=== PATIENT | female | born 1980 | race Hispanic/Latino ===

== ENCOUNTER 2022-07-23 07:43 | Emergency (ER) | payer OTHER ==
--- OUTSIDE RECORDS SUMMARY | 2022-07-23 07:47 | XMS REPORT | Continuity of Care Document ---
:1980 Author Organization [facility] t Address [address] [place] [address] Dr. Ortiz [address] [place] [address] Care Team Providers Name Role Phone Saad Cheek Primary Care Physician [phone] Problems This patient has no known problems. Allergies, Adverse Reactions, Alerts This patient has no known allergies or adverse reactions. Medications Ordered Filled Start Stop Current Ordering Indication Dosage Frequency Signature Comments Components Source Medication Medication Date Date Medication? Clinician (SIG) Name Name TAKE 1 No 10 TABLET (10 8-22 MG TOTAL) 00:00: BY MOUTH 00 DAILY. atorvastati 2021-0 No 1mg n 20 mg 7-21 tablet 00:00: 00 Dose 2021-0 No Unknown 7-21 00:00: 00 Jardiance 2-0 No 1mg 10 mg 7-21 tablet 00:00: 00 Jardiance 2021-0 No 1mg 10 mg 7-21 tablet 00:00: 00 metformin 2-0 No 1mg 1,000 mg 7-21 tablet 00:00: 00 gabapentin 2-0 No 1mg 600 mg 7-21 tablet 00:00: 00 Vital Signs Vital Name Observation Time Observation Value Comments Source BP Systolic 2022-04-21 16:34:00 118 mm[Hg] BP Diastolic 2022-04-21 16:34:00 84 mm[Hg] Weight Measured 2022-04-21 16:34:00 251.60 pounds Height Measured 2022-04-21 16:34:00 64.00 inches Body Temperature 2022-04-21 16:34:00 98.10 degrees Heart Rate 2022-04-21 16:34:00 87.00 /min Respiratory Rate 2022-04-21 16:34:00 18.00 /min Procedures This patient has no known procedures. Plan of Care Planned Activity Planned Date Details Comments Source Goal Plan of Care Note [code = 88430-7] Goal Plan of Care Note [code = 10061-3] Encounters Start End Encounter Admission Attending Care Care Encounter Source Date/Time Date/Time Type Type Clinicians Facility Department ID 2022-04-21 2022-04-21 Outpatient [id number] 00:00:00 00:00:00 Visit [id number] Results Test Description Test Time Test Comments Results Result Comments Source HEMOGLOBIN A1c 2022-04-23 04:14:14 Test Item Value Reference Range Interpretation Comme nts HEMOGLOBIN A1c (test code = 6.5 % 4.2-5.6 H [employer] 91371) GUIDELINES FOR HGB A1C: PREDIABETES/INC REASED RISK . . . . . . . 5.7-6.4% DIAGNO SIS OF DIABETES . . . . . . . . . >=6.5% WITH CONFIRMATION OR APPROPRIATE SYM PTOMS NOTE: ASSAY MAY BE AFFECTED BY HEM OGLOBINOPATHIES (SICKLE CELL ANEMIA, S- C DISEASE, OTHERS) OR ARTIFICIALLY LO WERED BY DECREASED RED CELL SURVIVAL ( HEMOLYTIC ANEMIAS, BLOOD LOSS, ETC.). CO NSIDER ALTERNATE TESTING OR LABORATORY C ONSULTATION. CBC W/AUTO DIFF WITH [id number] 03:34:16 Test Item Value Reference Range Interpretation Comments WBC (test code = 11.3 K/UL 3.5-11.0 H 1001) RBC (test code = 4.93 M/UL 3.80-5.40 1002) HEMOGLOBIN (test code 14.1 G/DL 11.5-15.5 = 1003) HEMATOCRIT (test code 42.5 % 34.0-45.0 = 1004) MCV (test code = 86.2 fL 80.0-99.0 1005) MCH (test code = 28.6 PG 25.0-33.0 1006) MCHC (test code = 33.2 G/DL 31.0-36.0 1007) RDW (test code = 12.1 % 11.5-15.0 1038) NEUTROPHILS (test 67.3 % code = 1008) LYMPHOCYTES (test 24.8 % code = 1010) MONOCYTES (test code 5.1 % = 1011) EOSINOPHILS (test 2.0 % code = 1012) BASOPHILS (test code 0.4 % = 1013) IMMATURE GRANULOCYTES 0.4 % (test code = 1036) NUCLEATED RBCS (test 0.0 /100 WBC'S See_Comment [Aut omated code = 1065) message] The sy stem which generated this result transmitted reference range : 0.0. The refere nce range was not u sed to interpret th is result as normal/abnormal . PLATELET COUNT (test 357 K/UL 130-400 code = 1015) ABSOLUTE NEUTROPHILS 7.62 K/UL 1.50-7.50 H (test code = 1066) ABSOLUTE LYMPHOCYTES 2.81 K/UL 1.00-4.00 (test code = 1067) ABSOLUTE MONOCYTES 0.58 K/UL 0.20-1.00 (test code = 1068) ABSOLUTE EOSINOPHILS 0.23 K/UL 0.00-0.50 (test code = 1040) ABSOLUTE BASOPHILS 0.04 K/UL 0.00-0.20 (test code = 1069) ABS IMMATURE 0.05 K/UL 0.00-0.10 GRANULOCYTES (test code = 1020) ABS NUCLEATED RBCS 0.00 K/UL 0.00-0.11 (test code = 75159) LIPID [id number] 02:37:12 Test Item Value Reference Range Interpretation Comments CHOLESTEROL (test 160 MG/DL <200 code = 2210) TRIGLYCERIDES (test 69 MG/DL <150 code = 2232) HDL CHOLESTEROL (test 37 MG/DL >39 L code = 2220) CALC LDL CHOL (test 107 MG/DL <100 H NOTE: C ALCULATED LDL code = 2237) IS BASED ON ISABELLA-KAISER METHOD WHICHINCLUDES ADJUSTABLE TRIGLYCERIDE:VL DL CHOLESTEROL RAT IO.THIS FACTOR VARIES B Y MEASURED TRIGLY CERIDE AND NON-HDLCHOL ESTEROL CONCENTRATIONS WITH INCREASED CALCU LATED LDL SEENIN HIGH ER TRIGLYCERIDE OR LOWER NON-HDL SPECIME NS. FOR MOREINFORMATION , SEE CLIENT ANNOUNCE MENT AT [email or web address] RISK RATIO LDL/HDL 2.89 RATIO <3.22 (test code = 2238) COMPREHENSIVE METABOLIC [id number] 02:37:12 Test Item Value Reference Range Interpretation Comments GLUCOSE (test code = 164 MG/DL 70-99 H 2216) BUN (test code = 9 MG/DL 6-20 2207) CREATININE (test 0.55 MG/DL 0.60-1.30 L code = 2214) eGFR (2020 CKD-EPI) 118 >60 (test code = 44576) ML/MIN/1.73 CALC BUN/CREAT (test 16 RATIO 6-28 code = 2235) SODIUM (test code = 141 MEQ/L 156-465 4892) POTASSIUM (test code 4.5 MEQ/L 3.5-5.4 = 2227) CHLORIDE (test code 103 MEQ/L 95-107 = 2214) CARBON DIOXIDE (test 27 MEQ/L 19-31 code = 220) CALCIUM (test code = 9.9 MG/DL 8.5-10.5 2208) PROTEIN, TOTAL (test 7.3 G/DL 6.1-8.3 code = 2228) ALBUMIN (test code = 4.5 G/DL 3.5-5.2 2200) CALC GLOBULIN (test 2.8 G/DL 1.9-3.7 code = 224) CALC A/G RATIO (test 1.6 RATIO 1.0-2.6 code = 223) BILIRUBIN, TOTAL 0.2 MG/DL See_Comment [Automated message] (test code = 2207) The syste m which generated this result transmitted ref erence range: <=1.2. T he reference range was not used to int erpret this result as normal/abnormal . ALKALINE PHOSPHATASE 63 U/L 40-113 (test code = 2204) AST (test code = 10 U/L 9-40 2217) ALT (test code = 14 U/L 5-40 UNLESS OTH ERWISE 2218) INDICATED, ALL TESTING PERFORM [facility] [place] [address] [place] [address] [facility] DIRECTOR: FIDELINA JONES M.D. CLIA NUMBER [id number] CAP ACCREDITATION N O. [id number] CBC W/AUTO DIFF WITH PLATELETS [ADDED]2022-04-23 00:00:00 Test Item Value Reference Range Interpretation Comments WBC (test code = 1001) 11.3 K/UL RBC (test code = 1002) 4.93 M/UL HEMOGLOBIN (test code = 1003) 14.1 G/DL HEMATOCRIT (test code = 1004) 42.5 % MCV (test code = 1005) 86.2 fL MCH (test code = 1006) 28.6 PG MCHC (test code = 1007) 33.2 G/DL RDW (test code = 1038) 12.1 % NEUTROPHILS (test code = 1008) 67.3 % LYMPHOCYTES (test code = 1010) 24.8 % MONOCYTES (test code = 1011) 5.1 % EOSINOPHILS (test code = 1012) 2.0 % BASOPHILS (test code = 1013) 0.4 % IMMATURE GRANULOCYTES (test 0.4 % code = 1036) NUCLEATED RBCS (test code = 0.0 /100WBC'S 1065) PLATELET COUNT (test code = 357 K/UL 1015) ABSOLUTE NEUTROPHILS (test code 7.62 K/UL = 1066) ABSOLUTE LYMPHOCYTES (test code 2.81 K/UL = 1067) ABSOLUTE MONOCYTES (test code = 0.58 K/UL 1068) ABSOLUTE EOSINOPHILS (test code 0.23 K/UL = 1040) ABSOLUTE BASOPHILS (test code = 0.04 K/UL 1069) ABS IMMATURE GRANULOCYTES (test 0.05 K/UL code = 1020) ABS NUCLEATED RBCS (test code = 0.00 K/UL 14507) CBC W/AUTO DIFF WITH PLATELETS [ADDED]2022-04-23 00:00:00 Test Item Value Reference Range Interpretation Comments WBC (test code = 1001) 11.3 K/UL RBC (test code = 1002) 4.93 M/UL HEMOGLOBIN (test code = 1003) 14.1 G/DL HEMATOCRIT (test code = 1004) 42.5 % MCV (test code = 1005) 86.2 fL MCH (test code = 1006) 28.6 PG MCHC (test code = 1007) 33.2 G/DL RDW (test code = 1038) 12.1 % NEUTROPHILS (test code = 1008) 67.3 % LYMPHOCYTES (test code = 1010) 24.8 % MONOCYTES (test code = 1011) 5.1 % EOSINOPHILS (test code = 1012) 2.0 % BASOPHILS (test code = 1013) 0.4 % IMMATURE GRANULOCYTES (test 0.4 % code = 1036) NUCLEATED RBCS (test code = 0.0 /100WBC'S 1065) PLATELET COUNT (test code = 357 K/UL 1015) ABSOLUTE NEUTROPHILS (test code 7.62 K/UL = 1066) ABSOLUTE LYMPHOCYTES (test code 2.81 K/UL = 1067) ABSOLUTE MONOCYTES (test code = 0.58 K/UL 1068) ABSOLUTE EOSINOPHILS (test code 0.23 K/UL = 1040) ABSOLUTE BASOPHILS (test code = 0.04 K/UL 1069) ABS IMMATURE GRANULOCYTES (test 0.05 K/UL code = 1020) ABS NUCLEATED RBCS (test code = 0.00 K/UL 77941) CBC W/AUTO DIFF WITH PLATELETS [ADDED]2022-04-23 00:00:00 Test Item Value Reference Range Interpretation Comments WBC (test code = 1001) 11.3 K/UL RBC (test code = 1002) 4.93 M/UL HEMOGLOBIN (test code = 1003) 14.1 G/DL HEMATOCRIT (test code = 1004) 42.5 % MCV (test code = 1005) 86.2 fL MCH (test code = 1006) 28.6 PG MCHC (test code = 1007) 33.2 G/DL RDW (test code = 1038) 12.1 % NEUTROPHILS (test code = 1008) 67.3 % LYMPHOCYTES (test code = 1010) 24.8 % MONOCYTES (test code = 1011) 5.1 % EOSINOPHILS (test code = 1012) 2.0 % BASOPHILS (test code = 1013) 0.4 % IMMATURE GRANULOCYTES (test 0.4 % code = 1036) NUCLEATED RBCS (test code = 0.0 /100WBC'S 1065) PLATELET COUNT (test code = 357 K/UL 1015) ABSOLUTE NEUTROPHILS (test code 7.62 K/UL = 1066) ABSOLUTE LYMPHOCYTES (test code 2.81 K/UL = 1067) ABSOLUTE MONOCYTES (test code = 0.58 K/UL 1068) ABSOLUTE EOSINOPHILS (test code 0.23 K/UL = 1040) ABSOLUTE BASOPHILS (test code = 0.04 K/UL 1069) ABS IMMATURE GRANULOCYTES (test 0.05 K/UL code = 1020) ABS NUCLEATED RBCS (test code = 0.00 K/UL 73717) HEMOGLOBIN A1c [ADDED]2022-04-23 00:00:00 Test Item Value Reference Range Interpretation Comments HEMOGLOBIN A1c (test code = 52946) 6.5 % HEMOGLOBIN A1c [ADDED]2022-04-23 00:00:00 Test Item Value Reference Range Interpretation Comments HEMOGLOBIN A1c (test code = 48125) 6.5 % HEMOGLOBIN A1c [ADDED]2022-04-23 00:00:00 Test Item Value Reference Range Interpretation Comments HEMOGLOBIN A1c (test code = 18390) 6.5 % LIPID PANEL [ADDED]2022-04-23 00:00:00 Test Item Value Reference Range Interpretation Comments CHOLESTEROL (test code = 2210) 160 MG/DL TRIGLYCERIDES (test code = 2232) 69 MG/DL HDL CHOLESTEROL (test code = 2220) 37 MG/DL CALC LDL CHOL (test code = 2237) 107 MG/DL RISK RATIO LDL/HDL (test code = 2.89 RATIO 2238) LIPID PANEL [ADDED]2022-04-23 00:00:00 Test Item Value Reference Range Interpretation Comments CHOLESTEROL (test code = 2210) 160 MG/DL TRIGLYCERIDES (test code = 2232) 69 MG/DL HDL CHOLESTEROL (test code = 2220) 37 MG/DL CALC LDL CHOL (test code = 2237) 107 MG/DL RISK RATIO LDL/HDL (test code = 2.89 RATIO 2238) COMPREHENSIVE METABOLIC PANEL [ADDED]2022-04-23 00:00:00 Test Item Value Reference Range Interpretation Comments GLUCOSE (test code = 2217) 164 MG/DL BUN (test code = 2208) 9 MG/DL CREATININE (test code = 2214) 0.55 MG/DL eGFR (2020 CKD-EPI) (test 118 ML/MIN/1.73 code = 85128) CALC BUN/CREAT (test code = 16 RATIO 2235) SODIUM (test code = 2231) 141 MEQ/L POTASSIUM (test code = 2228) 4.5 MEQ/L CHLORIDE (test code = 2215) 103 MEQ/L CARBON DIOXIDE (test code = 27 MEQ/L 2205) CALCIUM (test code = 2209) 9.9 MG/DL PROTEIN, TOTAL (test code = 7.3 G/DL 2228) ALBUMIN (test code = 2201) 4.5 G/DL CALC GLOBULIN (test code = 2.8 G/DL 2240) CALC A/G RATIO (test code = 1.6 RATIO 223) BILIRUBIN, TOTAL (test code = 0.2 MG/DL 2206) ALKALINE PHOSPHATASE (test 63 U/L code = 2204) AST (test code = 2218) 10 U/L ALT (test code = 2219) 14 U/L COMPREHENSIVE METABOLIC PANEL [ADDED]2022-04-23 00:00:00 Test Item Value Reference Range Interpretation Comments GLUCOSE (test code = 2217) 164 MG/DL BUN (test code = 2208) 9 MG/DL CREATININE (test code = 2214) 0.55 MG/DL eGFR (2020 CKD-EPI) (test 118 ML/MIN/1.73 code = 01609) CALC BUN/CREAT (test code = 16 RATIO 2234) SODIUM (test code = 2231) 141 MEQ/L POTASSIUM (test code = 2228) 4.5 MEQ/L CHLORIDE (test code = 2215) 103 MEQ/L CARBON DIOXIDE (test code = 27 MEQ/L 2205) CALCIUM (test code = 2209) 9.9 MG/DL PROTEIN, TOTAL (test code = 7.3 G/DL 2228) ALBUMIN (test code = 2201) 4.5 G/DL CALC GLOBULIN (test code = 2.8 G/DL 2239) CALC A/G RATIO (test code = 1.6 RATIO 2233) BILIRUBIN, TOTAL (test code = 0.2 MG/DL 2206) ALKALINE PHOSPHATASE (test 63 U/L code = 2204) AST (test code = 2218) 10 U/L ALT (test code = 2219) 14 U/L
--- NOTE | 2022-07-23 08:10 | ER ---
Nurse's Notes [facility] Name: Cinthya Menendez Age: 42 yrs Sex: Female : 1980 Arrival Date: 07/23/2022 Time: 07:46 Bed 6 Private MD: Diagnosis: Low back pain;Muscle spasm of back Presentation: 07/23 07:54 Chief complaint: Patient states: mid back pain and pain below her neck X 1 month, lifts iw heavy boxes at work , she had to miss work today because the pain got bad. Coronavirus screen: At this time, the client does not indicate any symptoms associated with coronavirus-19. Ebola Screen: Patient negative for fever greater than or equal to 101.5 degrees Fahrenheit, and additional compatible Ebola Virus Disease symptoms Patient denies exposure to infectious person. Patient denies travel to an Ebola-affected area in the 21 days before illness onset. No symptoms or risks identified at this time. Initial Sepsis Screen: Does the patient meet any 2 criteria? No. Patient's initial sepsis screen is negative. Does the patient have a suspected source of infection? No. Patient's initial sepsis screen is negative. Risk Assessment: Do you want to hurt yourself or someone else? Patient reports no desire to harm self or others. Onset of symptoms was June 2022. 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 - Social history:: Smoking status: Patient reports the use of cigarette tobacco products, smokes one pack cigarettes per day. - Family history:: not pertinent. - Hospitalizations: : No recent hospitalization is reported. Screenin:26 Abuse screen: Denies threats or abuse. Denies injuries from another. Nutritional kc6 screening: No deficits noted. Tuberculosis screening: No symptoms or risk factors identified. Fall Risk No fall in past 12 months (0 pts). No secondary diagnosis (0 pts). No IV (0 pts). Ambulatory Aid- None/Bed Rest/Nurse Assist (0 pts). Gait- Normal/Bed Rest/Wheelchair (0 pts) Mental Status- Oriented to own ability (0 pts). Total Julian Fall Scale indicates No Risk (0-24 pts). Assessment: 08:21 General: Appears in no apparent distress. comfortable, Behavior is calm, cooperative, kc6 appropriate for age. Pain: Complains of pain in low back area Pain does not radiate. Pain currently is 7 out of 10 on a pain scale. Quality of pain is described as aching, dull, Pain began x1 month Is continuous, Alleviated by activity and movement Aggravated by rest Current management is with Tylenol, Aleve, Ibuprofen, Methocarbamol is ineffective. Neuro: Motley Agitation-Sedation Scale (RASS): 0 - Alert and Calm Level of Consciousness is awake, alert, obeys commands, Oriented to person, place, time, situation. Cardiovascular: Heart tones S1 S2 present Capillary refill < 3 seconds. Respiratory: Airway is patent Respiratory effort is even, unlabored, Respiratory pattern is regular, symmetrical, Breath sounds are clear bilaterally. GI: No signs and/or symptoms were reported involving the gastrointestinal system. : No signs and/or symptoms were reported regarding the genitourinary system. EENT: No signs and/or symptoms were reported regarding the EENT system. Derm: No signs and/or symptoms reported regarding the dermatologic system. Musculoskeletal: Circulation, motion, and sensation intact. Capillary refill < 3 seconds, Range of motion: intact in all extremities, Swelling absent. 08:41 Reassessment: Patient appears in no apparent distress at this time. No changes from kc6 previously documented assessment. Patient and/or family updated on plan of care and expected duration. Pain level reassessed. Patient is alert, oriented x 3, equal unlabored respirations, skin warm/dry/pink. Vital Signs: 07:54 BP 116 / 79; Pulse 69; Resp 16; Temp 97.1; Pulse Ox 98% on R/A; Pain 7/10; iw 08:36 BP 110 / 70 LA Sitting (auto/); Pulse 71 LA; Resp 16; Pulse Ox 96% on R/A; Pain 7/10; kc6 ED Course: 07:46 Patient arrived in ED. mr 07:47 Solitario Monge MD is Attending Physician. rn 07:49 Chay Basilio, RN is Primary Nurse. jd3 07:55 Triage completed. iw 07:57 Arm band placed on. iw 08:26 Patient has correct armband on for positive identification. Bed in low position. Call kc6 light in reach. 08:26 No provider procedures requiring assistance completed. Patient did not have IV access kc6 during this emergency room visit. Administered Medications: 08:20 Drug: Ketorolac 30 mg Route: IM; Site: left deltoid; kc6 08:40 Follow up: Response: No adverse reaction kc6 08:20 Drug: Decadron (dexamethasone) 10 mg Route: IM; Site: right ventrogluteal; kc6 08:40 Follow up: Response: No adverse reaction kc6 Medication: 08:41 VIS not applicable for this client. kc6 Outcome: 08:09 Discharge ordered by . rn 08:40 Discharged to home ambulatory, with family. kc6 08:40 Condition: stable 08:40 Discharge instructions given to patient, family, Instructed on discharge instructions, medication usage, Demonstrated understanding of instructions, medications, Prescriptions given X 2. 08:41 Patient left the ED. kc6 Signatures: Cornelia Moreland mr LeijaYecenia, Solitario Perez RN, MD MD rn Davies, Jonathon, RN RN jd3 Campbell, Kaitlyn, RN RN kcTess
--- NOTE | 2022-07-23 08:10 | EDPHYS ---
Physician Documentation [facility] Name: Cinthya Menendez Age: 42 yrs Sex: Female : 1980 Arrival Date: 07/23/2022 Time: 07:46 Bed 6 Private MD: ED Physician Solitario Monge HPI: 07/23 08:04 This 42 yrs old Female presents to ER via Ambulatory with complaints of Back rn Pain. 08:04 The patient presents with pain that is chronic, with no known mechanism of injury. The rn symptoms are located in the thoracic area and lumbar area. Onset: The symptoms/episode began/occurred 1 month(s) ago. The pain does not radiate. Associated signs and symptoms: Pertinent negatives: abdominal pain, chest pain, dysuria, fever, hematuria, incontinence, nausea, numbness, tingling, urinary retention, vomiting, weakness. Modifying factors: The patient symptoms are alleviated by movement and activity, the patient symptoms are aggravated by remaining still, in evenings, and in mornings. Severity of symptoms: At their worst the symptoms were moderate, in the emergency department the symptoms are unchanged. The patient has experienced similar episodes in the past, chronically. The patient has not recently seen a physician. Pt reports chronic back pain, acting up again over last month. Has had hip and back problems before requiring back injections. No acute changes or trauma. Works on her feet and lifts things at work. No radiation. No bowel or bladder problems. . [employer]: 07:57 LMP 07/21/2022 iw Historical: - Allergies: 07:55 No Known Allergies; iw - Home Meds: 07:55 metformin 1,000 mg Oral tr24 1 tab 2 times per day [Active]; gabapentin 600 mg oral tab iw twice a day [Active]; Jardiance oral once daily [Active]; atorvastatin 20 mg oral tab 1 tab once daily [Active]; lisinopril 10 mg Oral tab 1 tab once daily [Active]; - PMHx: 07:55 Diabetes mellitus; Hypertensive disorder; Hypercholesterolemia; iw - Immunization history:: Client reports receiving the 2nd dose of the Covid vaccine. - Social history:: Smoking status: Patient reports the use of cigarette tobacco products, smokes one pack cigarettes per day. - Family history:: not pertinent. - Hospitalizations: : No recent hospitalization is reported. ROS: 08:04 Constitutional: Negative for fever, chills, and weight loss, Eyes: Negative for injury, rn pain, redness, and discharge, Neck: Negative for injury, pain, and swelling, Cardiovascular: Negative for chest pain, palpitations, and edema, Respiratory: Negative for shortness of breath, cough, wheezing, and pleuritic chest pain, Abdomen/GI: Negative for abdominal pain, nausea, vomiting, diarrhea, and constipation, Back: Negative for injury : Negative for injury, bleeding, discharge, and swelling, MS/Extremity: Negative for injury and deformity, Skin: Negative for injury, rash, and discoloration, Neuro: Negative for headache, weakness, numbness, tingling, and seizure. Exam: 08:04 Constitutional: Overweight female, ambulatory to room without difficulty or distress rn Head/Face: Normocephalic, atraumatic. Neck: No masses, no meningismus, supple Cardiovascular: Regular rate and rhythm. No pulse deficits. Respiratory: No increased work of breathing, no retractions or nasal flaring. Abdomen/GI: soft, non-tender Back: No spinal tenderness. No costovertebral tenderness. Full range of motion. + paraspinal tenderness along entire back without focal area of complaint Skin: Warm, dry MS/ Extremity: Pulses equal, no cyanosis. Neurovascular intact. Full, normal range of motion. Equal circumference. Neuro: Awake and alert, GCS 15. Motor strength 5/5 in all extremities. Sensory grossly intact. Cerebellar exam normal. Normal gait. Vital Signs: 07:54 BP 116 / 79; Pulse 69; Resp 16; Temp 97.1; Pulse Ox 98% on R/A; Pain 7/10; iw 08:36 BP 110 / 70 LA Sitting (auto/); Pulse 71 LA; Resp 16; Pulse Ox 96% on R/A; Pain 7/10; kc6 MDM: 07:47 Patient medically screened. rn 08:04 Differential diagnosis: arthritis, chronic back pain, Fatigue Osteoarthritis ruptured rn disc. Data reviewed: vital signs, nurses notes, and as a result, I will discharge patient. Counseling: I had a detailed discussion with the patient and/or guardian regarding: the historical points, exam findings, and any diagnostic results supporting the discharge/admit diagnosis, the need for outpatient follow up, to return to the emergency department if symptoms worsen or persist or if there are any questions or concerns that arise at home. Special discussion: I discussed with the patient/guardian in detail that at this point there is no indication for admission to the hospital. It is understood, however, that if the symptoms persist or worsen the patient needs to return immediately for re-evaluation. Based on the history and exam findings, there is no indication for further emergent testing or inpatient evaluation. I discussed with the patient/guardian the need to see the back specialist for further evaluation of the symptoms. I discussed with the patient/guardian the need to see the primary care provider for further evaluation of the symptoms. ED course: Pt does not require emergent imaging of back today, recommend muscle relaxer and patient requests steroids that have helped her in past. Return precautions given and understood. . Administered Medications: 08:20 Drug: Ketorolac 30 mg Route: IM; Site: left deltoid; kc6 08:40 Follow up: Response: No adverse reaction 6 08:20 Drug: Decadron (dexamethasone) 10 mg Route: IM; Site: right ventrogluteal; kc6 08:40 Follow up: Response: No adverse reaction kc6 Disposition Summary: 07/23/22 08:09 Discharge Ordered Location: Home rn Problem: chronic rn Symptoms: have improved rn Condition: Stable rn Diagnosis - Low back pain rn - Muscle spasm of back rn Followup: rn - With: Private Physician - When: As needed - Reason: Recheck today's complaints, Re-evaluation by your physician Discharge Instructions: - Discharge Summary Sheet rn - Chronic Back Pain rn - Muscle Cramps and Spasms rn - Musculoskeletal Pain rn - Back Injury Prevention, [id number] rn - Back Exercises rn Forms: - Medication Reconciliation Form rn - Thank You Letter rn - Antibiotic marketing intern - Prescription Opioid Use rn - Work release form eb Prescriptions: - Cyclobenzaprine 10 mg Oral Tablet - take 1 tablet by ORAL route every 8 hours As needed; 15 tablet; Refills: 0, rn Product Selection Permitted - Medrol (Riley) 4 mg Oral Tablets, Dose Pack - take 1 tablet by ORAL route as directed - follow package instructions; 1 rn packet; Refills: 0, Product Selection Permitted Signatures: Yecenia Leija RN Solitario Perez MD MD rn Campbell, Kaitlyn, RN RN kc6
[2022-07-23] MEDS ORDERED: dexAMETHasone 10 MG/ML VIAL ONE (08:12)
[2022-07-23] MEDS ORDERED: KETOROLAC 30 MG/ML INJ ONE (08:12)
[2022-07-23 08:48] VITALS: TEMP 97.1
[2022-07-23 08:49] VITALS: BP 110/70; O2SAT 96
== END 2022-07-23 08:41 | disposition home or self-care (01) ==
LOC: ER 07:43
DX: M62.830 Muscle spasm of back (principal); M54.50 Low back pain, unspecified; E11.9 Type 2 diabetes mellitus without complications; I10 Essential (primary) hypertension; F17.210 Nicotine dependence, cigarettes, uncomplicated
CPT/HCPCS: 96372; 99283; J1100